=== PATIENT | female | born 1965 | race Caucasian/White ===

== ENCOUNTER 2024-12-20 08:11 | Emergency (ER) | payer OTHER, SELFPAY ==
--- NOTE | 2024-12-20 08:17 | ED_ITS ---
HPI - URI/Sore Throat General Chief Complaint: Upper Respiratory Infection Stated Complaint: Sore Throat/Cough Time Seen by Provider: 12/20/24 08:38 Source: patient and RN notes reviewed Mode of arrival: ambulatory Limitations: no limitations History of Present Illness HPI Narrative: 59 year old female presents with concern for painful swallowing, a lump in her neck. She reports she started having symptoms on Sunday with chills, general malaise. Reports those symptoms resolved in the middle of the week but then she began experiencing a lump in her throat and painful swallowing. Reports she is unable to swallow food or pills. Reports that area is very painful. She can swallow her secretions. She denies respiratory distress or difficulty breathing. MD elicited complaint: sore throat Related Data Home Medications ?Medication ?Instructions ?Recorded ?Confirmed ?Last Taken ?Type No Home Medications 12/20/24 12/20/24 Unknown History Allergies Allergy/AdvReac Type Severity Reaction Status Date / Time No Known Allergies Allergy Verified 12/20/24 08:42 Review of Systems Review of Systems: CONSTITUTIONAL: Reports malaise, chills. Denies sweats, or fever. EYES: Denies visual changes, redness, or discharge. ENT: Denies rhinorrhea, congestion, sinus pain, otalgia. Reports sore throat, lump in her neck. CARDIOVASCULAR: Denies chest pain, palpitations, or edema. RESPIRATORY: Denies cough. Denies dyspnea. GASTROINTESTINAL: Denies abdominal pain, nausea, vomiting, diarrhea SKIN: Denies rash or itching. MUSCULOSKELETAL: Denies myalgia. NEUROLOGIC: Denies headache. All systems reviewed & are unremarkable except as noted in HPI and below PMFSH Family History Family History (Updated 04/24/18 @ 10:34 by DOCTOR UNKNOWN) Grandparent Diabetes mellitus Family history of kidney disease Family history of chronic obstructive pulmonary disease Carcinoma of colon Mother Patient's mother is in good health Father Patient's father is in good health Social History Social History Smoking status: Heavy tobacco smoker Second hand tobacco smoke exposure: No Smoking end date: 12/19/17 Alcohol intake: current Comments At time of signature, agree with nursing past medical, surgical, social and family history. There is no relevant family history pertinent to the presenting complaint Exam Narrative: GENERAL: Well-appearing, well-nourished, and in no acute distress. HEAD: Normocephalic EYES: PERRLA, conjunctivae clear ENT: Nares clear. Mucous membranes moist. TM pearly bangura with sharp light reflex bilaterally; no tragal tenderness. Oropharynx not erythematous without lesions. Tonsils not enlarged and without exudate, no drooling, no hoarseness, no trismus, uvula midline. Approximately 4 cm palpable mass in the left carotid area NECK: Supple. No lymphadenopathy CHEST: Clear to auscultation, breath sounds equal. No wheezing, rhonchi, rales, or stridor. No respiratory distress, speaks in full sentences. HEART: Regular rate and rhythm. No murmur heard. SKIN: Warm, dry, no rash. NEURO: Alert and oriented x3. PSYCH: Normal mood and affect Course Course Emergency Course: Patient is aware of, understands and agrees to be transferred to the emergency room. Patient agrees to proceed directed to the emergency department. Portions of this record may have been created with voice recognition software Level of Care: Express Care Visit Vital Signs Vital signs: Reviewed. Transfer Transfered to: [facility], [place] Transportation: Other (Private vehicle) Transfer rationale: Throat mass Accepting physician: Bull MARADIAGA - URI/Sore Throat MDM Narrative Medical decision making narrative: Differential diagnosis considered: Green virus, strep pharyngitis, allergic rhinitis, upper respiratory tract infection, sinusitis, rhinosinusitis, nasopharyngitis. viral pharyngitis, otitis media, otitis externa, pneumonia, bronchitis, viral cough syndrome, viral syndrome, and influenza. Exam findings show no acute concerns or changes; patient is non-toxic appearing and is in no distress. Patient is appropriate for outpatient treatment and follow-up. Lab Data Attestation: I reviewed the patient's lab results. Critical Care Time Critical Care Time Critical Care Time: No Discharge Plan Discharge Clinical Impression: Throat mass Patient Disposition: Acute Care Hospital Condition: Stable Instructions: Antibiotic Form Patient Language: Tongan Prescriptions: No Action No Home Medications Follow-up/Referrals: Antonio,Jose Ellison MD [Primary Care Provider] -
[2024-12-20 08:25] VITALS: BP 121/76; PULSE 105; RESP 16; TEMP 37.3; O2SAT 98
[2024-12-20 08:40] LABS: EDSTREPNEGPOS1 Negative (Negative)
--- NOTE | 2024-12-20 10:18 | PC.NURSE ---
0840- JOINT CLEANING MACHINE OPERATOR called [facility] and dr floyd accepted pt, when we were filling out cobra paperwork, pt came up to desk and states that she changed her mind and she would rather go to [facility] - JOINT CLEANING MACHINE OPERATOR states that she would call ahead and get a new paperwork filled out and we would be in room shortly. 0850- [facility] da silva accepts. 0855- JOINT CLEANING MACHINE OPERATOR took in cobra papers to have pt sign and explain NPO to her, and pt abruptly states I cant swallow anything anyway cause it hurts. and signed cobra form in the wrong place and gave it back to JOINT CLEANING MACHINE OPERATOR. pt then walked around to registration and states that she just wanted to pay her 50 dollar co pay and just be done with us, and she would only be back if she ever needed a bandaid - pt left in stable ambulatory condition.
== END 2024-12-20 08:55 | disposition short-term general hospital (02) ==
PROVIDERS: Emergency Provider Nurse Practitioner; PCP Internal Medicine
DX: J39.2 Other diseases of pharynx (principal); F17.210 Nicotine dependence, cigarettes, uncomplicated
CPT/HCPCS: 87081; 87880; 99203; G0463

== ENCOUNTER 2025-02-26 10:40 | Outpatient (CLI) | payer OTHER, SELFPAY | END 2025-02-26 10:41 | disposition home or self-care (01) | LOC: MICIMG 10:44 | PROVIDERS: PCP Orthopaedic Surgery; Visit Provider Orthopaedic Surgery | DX: M25.562 Pain in left knee (principal) | CPT/HCPCS: 73562 ==